=== PATIENT | male | born 1975 | race Caucasian/White ===

== ENCOUNTER 2017-08-05 14:06 | Emergency (ER) | payer MEDICAID, OTHER ==
[2017-08-05] MEDS ORDERED: BENADRYL 50 MG/ML IV ONE (16:41)
[2017-08-05] MEDS ORDERED: Sodium Chloride 0.9% 1000 ML 1,000 ML IV STA (16:41)
[2017-08-05] MEDS ORDERED: Reglan 10 MG/2 ML IV ONE (16:41)
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
[2017-08-05] MEDS ORDERED: Reglan 10 MG/2 ML ONE (16:56)
[2017-08-05] MEDS ORDERED: Sodium Chloride 0.9% 1000 ML 1,000 ML ONE (16:56)
[2017-08-05] MEDS ORDERED: BENADRYL 50 MG/ML ONE (16:56)
[2017-08-05 17:59] VITALS: BP 134/78; PULSE 78; O2SAT 98
== END 2017-08-05 17:59 | disposition home or self-care (01) ==
LOC: ED 14:06
DX: G43.909 Migraine, unspecified, not intractable, without status migrainosus (principal); Z79.899 Other long term (current) drug therapy; G80.9 Cerebral palsy, unspecified
CPT/HCPCS: 36000; 96360; 96374; 96375; 99284; J1200

== ENCOUNTER 2018-03-14 16:47 | Emergency (ER) | payer OTHER ==
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
[2018-03-14 19:21] VITALS: BP 117/77; PULSE 104; O2SAT 99
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
== END 2018-03-14 19:23 | disposition home or self-care (01) ==
LOC: ED 16:47
DX: S09.90XA Unspecified injury of head, initial encounter (principal); R51 Headache; M54.5 Low back pain; V57.6XXA Passenger in pick-up truck or van injured in collision with fixed or stationary object in traffic accident, initial encounter; Z79.899 Other long term (current) drug therapy
CPT/HCPCS: 70450; 72100; 99284

== ENCOUNTER 2018-04-18 17:01 | Emergency (ER) | payer OTHER ==
[2018-04-18] MEDS ORDERED: Zofran 4 MG/2 ML VIAL IV ONE (17:14)
[2018-04-18] MEDS ORDERED: Sodium Chloride 0.9% 1000 ML 1,000 ML IV SCH (17:15)
[2018-04-18 17:17] VITALS: O2SAT 98
[2018-04-18] MEDS ORDERED: TORAdol 30 mg Injection ONE (17:20)
[2018-04-18] MEDS ORDERED: Sodium Chloride 0.9% 1000 ML 1,000 ML ONE (17:20)
[2018-04-18] MEDS ORDERED: Zofran 4 MG/2 ML VIAL ONE (17:20)
[2018-04-18] MEDS: TORAdol 30 mg Injection IV ONE (17:21)
--- NOTE | 2018-04-18 17:39 | ERPHSYRPT ---
- History of Present Illness Time Seen by Provider: 04/18/18 17:02 Source: patient Exam Limitations: no limitations Patient Subjective Stated Complaint: pt fell off of ladder and fell about 8 feet from ladder, and landed on ground and landscape timbers, no loc, co pain to lower back.shoulders Triage Nursing Assessment: pt walked in, alert, resp easy, vomited about 500 cc , chest clear, abd soft, moves all ext, co pain to lower back has abrasions to back Physician History: patient walked in after falling 6-8' from a ladder onto the ground and across some Intellit[employer]ing logs; no head or neck injury; stunned but no lOC; no cheat or abdominal pain; some nausea and later some emesis from the pain in back and pelvis; no arm or leg pain; severe pain in lower back bilateral and both hips and sacrum; no numbness or tingling; no incontinence; no prior hx; no other complaints Method of Injury: fall Occurred: this afternoon ( one hr prior to arrival) Where Injury Occurred: home Loss of Consciousness: no loss of consciousness, dazed Pain Location: left, right, pelvis, hip(s), back (lower bilateral) Severity of Pain-Max: severe Severity of Pain-Current: severe Modifying Factors: Improves With: movement (aggravates) Associated Symptoms: back pain, nausea, vomiting, No abdominal pain, No chest pain, No neck pain, No seizures, No shortness of breath, No vision changes Allergies/Adverse Reactions: morphine Allergy (Intermediate, Verified 03/14/18 17:54) Hives Home Medications: Divalproex Sodium [Depakote] 250 mg PO TID 06/22/15 [History] Eslicarbazepine Acetate [Aptiom] 800 mg PO DAILY 12/14/15 [History] Gabapentin [Neurontin] 300 mg PO TID 08/02/16 [History] Brivaracetam [Briviact] 100 mg BID 04/18/18 [History] Hx Tetanus, Diphtheria Vaccination/Date Given: No Hx Influenza Vaccination/Date Given: No Hx Pneumococcal Vaccination/Date Given: No Immunizations Up to Date: Yes - Review of Systems Constitutional: No Symptoms Eyes: No Symptoms Ears, Nose, & Throat: No Symptoms Respiratory: No Cough, No Dyspnea, No Wheezing Cardiac: No Chest Pain, No Palpitations, No Syncope Abdominal/Gastrointestinal: Nausea, Vomiting, No Abdominal Pain, No Diarrhea, No Hematemesis, No Hematochezia Genitourinary Symptoms: No Dysuria, No Hematuria, No Incontinence, No Urinary Retention, No Testicle Pain Musculoskeletal: Back Pain, Fall, Injury, No Neck Pain Skin: No Symptoms Neurological: No Focal Weakness, No Headache, No Paralysis, No Parasthesia, No Seizure, No Sensory Changes Psychological: No Symptoms Endocrine: No Symptoms Hematologic/Lymphatic: No Symptoms Immunological/Allergic: No Symptoms - Past Medical History Pertinent Past Medical History: Yes Neurological History: Seizures, Other ENT History: No Pertinent History Cardiac History: Hypertension Respiratory History: No Pertinent History Endocrine Medical History: No Pertinent History Musculoskeletal History: Degenerative Disk Disease, Fibromyalgia, Rheumatoid Arthritis GI Medical History: GERD History: No Pertinent History Psycho-Social History: Anxiety, Depression Male Reproductive Disorders: No Pertinent History Other Medical History: 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 HYPOKALEMIA, MESENTERIC PYMPHAGITIS, DEPRESSION, MULTIPLE SCLEROSIS, GERD, CARPAL TUNNEL SYNDROME. 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 - Social History Smoking Status: Never smoker Exposure to second hand smoke: No Alcohol Use: None Drug Use: none Patient Lives Alone: No Significant Family History: no pertinent family hx Physical Exam - Nursing Vital Signs Nursing Vital Signs: Initial Vital Signs Temperature 99.4 F 04/18/18 17:09 Pulse Rate 107 H 04/18/18 17:09 Respiratory Rate 16 04/18/18 17:09 Blood Pressure 141/105 04/18/18 17:09 O2 Sat by Pulse Oximetry 98 04/18/18 17:09 Pain Scale Pain Intensity 8 - Neeraj Coma Score Best Eye Response ([place]): (4) open spontaneously Best Verbal Response (Neeraj): (5) oriented Best Motor Response ([place]): (6) obeys commands Neeraj Total: 15 - Physical Exam General Appearance: severe distress (low back and pelvis and hip pain), alert Head Injury: no evidence of injury, No Adames's Sign, No contusions, No lacerations, No raccoon eyes, No swelling, No tenderness Eye Exam: bilateral eye: normal inspection, PERRL, EOMI, other (vision ok and fundi benign) ENT Exam: airway nml, nml ext.inspection, hearing grossly normal, No hemotympanum, No clotted nasal blood, No malocclusion Neck Exam: supple, trachea midline, full range of motion, normal inspection, No muscle spasm, No paraspinous muscle tender, No pain on movement of neck, No tenderness, No JVD Respiratory/Chest Exam: normal breath sounds, No chest tenderness, No respiratory distress, No ecchymosis, No crepitus, No rales, No rhonchi, No wheezing, No subcutaneous emphysema, No rib tenderness Cardiovascular Exam: normal heart sounds, regular rate/rhythm, normal peripheral pulses, tachycardia, No murmur, No JVD Gastrointestinal Exam: soft, normal bowel sounds, No tenderness, No guarding, No pulsatile mass, No rebound, No organomegaly Genitalia Exam: normal genital exam Rectal Exam: deferred Back Exam: vertebral tenderness (midline lower lumbar), decreased range of motion, muscle spasm (lower lumbar), point tenderness (mid lwoer lumbar), No normal inspection (loss of nomral LS curvature), No CVA tenderness, No rash Extremity Exam: normal inspection, normal range of motion (but with hip and back pain with straight leg raising bilateral), capillary refill <3 sec, pelvis stable, limited range of motion (hips and L/S due to apin), pain with movement, weight bearing (walked in), tenderness (bialteral hips and over sacrum post), No calf tenderness, No lacerations, No parasthesia, No paralysis, No latonya's sign, No pedal edema Peripheral Pulses: carotid (R): 4+, carotid (L): 4+, femoral (R): 4+, femoral (L ): 4+, dorsalis-pedis (R): 3+, dorsalis-pedis (L): 3+ Neurologic Exam: alert, oriented x 3, cooperative, stay cutter II-XII nml as tested, normal mood/affect, nml cerebellar function, nml station & gait, sensation nml Skin Exam: normal color, warm, dry, No rash, No petechiae, No cyanosis SpO2 Interpretation: normal SpO2: 98 Oxygen Delivery: Room Air - Course Nursing assessment & vital signs reviewed: Yes - CT Exams Abdomen/Pelvis CT Interpretation: Negative, Tele-radiologist Report, Other (compared to prior films; small HH and renal cyst; no bony abnormalities) Ordered Tests: Active Orders 24 hr Category Date Time Status Accucheck STAT Care 04/18/18 17:14 Active Cold Application STAT Care 04/18/18 17:14 Active IV Insertion STAT Care 04/18/18 17:14 Active Re-Check Vital Signs STAT Care 04/18/18 17:14 Active ABDOMEN AND PELVIS W/0 CONTRAS [CT] Stat Exams 04/18/18 17:16 Taken BMP Stat Lab 04/18/18 17:17 Completed CBC Stat Lab 04/18/18 17:17 Completed Medication Summary Generic Name Dose Route Start Last Admin Trade Name Freq PRN Reason Stop Dose Admin Sodium Chloride 1,000 mls @ 100 mls/hr 04/18/18 17:15 04/18/18 17:22 Sodium Chloride 0.9% 1000 Ml IV 05/18/18 17:14 100 mls/hr .Q10H JOHANN Administration Discontinued Medications Generic Name Dose Route Start Last Admin Trade Name Freq PRN Reason Stop Dose Admin Ketorolac Tromethamine 30 mg 04/18/18 17:14 04/18/18 17:21 Toradol 30 Mg Injection IV 04/18/18 17:15 30 mg STAT ONE Administration Ketorolac Tromethamine Confirm 04/18/18 17:20 Toradol 30 Mg Injection Administered 04/18/18 17:21 Dose 30 mg .ROUTE .STK-MED ONE Ondansetron HCl 4 mg 04/18/18 17:14 04/18/18 17:22 Zofran 4 Mg/2 Ml Vial IV 04/18/18 17:15 4 mg STAT ONE Administration Ondansetron HCl Confirm 04/18/18 17:20 Zofran 4 Mg/2 Ml Vial Administered 04/18/18 17:21 Dose 4 mg .ROUTE .STK-MED ONE Lab/Rad Data: Laboratory Result Diagrams 04/18/18 17:17 04/18/18 17:17 Laboratory Results 04/18/18 04/18/18 Range/Units 17:17 17:17 WBC 8.9 (4.0-10.5) K/mm3 RBC 5.04 (4.1-5.6) M/mm3 Hgb 15.4 (12.5-18.0) gm/dl Hct 45.4 (42-50) % MCV 90.1 (78-100) fl MCH 30.6 (26-32) pg MCHC 33.9 (32-36) g/dl RDW 13.0 (11.5-14.0) % Plt Count 80 L (150-450) K/mm3 MPV 11.0 H (6-9.5) fl Sodium 140 (137-145) mmol/L Potassium 3.7 (3.5-5.1) mmol/L Chloride 106 (98-107) mmol/L Carbon Dioxide 22 (22-30) mmol/L Anion Gap 15.7 H (5-15) MEQ/L BUN 6 L (9-20) mg/dL Creatinine 0.76 (0.66-1.25) mg/dL Estimated GFR > 60.0 ML/MIN Glucose 118 H (74-106) mg/dL Calcium 9.2 (8.4-10.2) mg/dL reviewed - Progress Progress: improved (after meds and cT), pain not gone completely, re-examined ( after meds and ct) Progress Note: 04/18/18 17:44 IV started, meds given; labs pending; patient in xr getting CT; will recheck on return 04/18/18 17:[address]; pain improved from 04/04 to 12/03; no sensory or neuro defecits; N&V resolved; CT results and lab results pending; VS ok; will monitor and recheck 04/18/18 18:19 family at bedside; patient continues to improve and get relief; C reported as negative for acute bony injury; compared to prior films; small HH and renal cyst ; results shared with patient and family; instructions given 04/18/18 18:24 labs ok Counseled pt/family regarding: lab results, diagnosis, need for follow-up, rad results - Departure Time of Disposition: 18:24 Departure Disposition: Home Clinical Impression: Acute lower back pain from fall, acute hip pain from fall Condition: Stable Critical Care Time: No Referrals: YENI ACOSTA [Primary Care Provider] - Instructions: Contusion (DC), Preventing Falls, Low Back Pain in Adults Additional Instructions: rest; ice; Back pain instructions. Rest, ice x 24-48 hours, then warm compresses; no heavy lifting (>20#'s) x 3-5 days; call [facility] [place] or [facility] Med doctor in am for follow up appointment and or referral as needed. Return if problems. Take meds as prescribed. Follow-up with family doctor as directed. Call for appointment. Return if any problems. If you smoke please stop. Call or follow up with your family doctor for assistance if you need it to stop. Please wear your seatbelt when driving. Have a nice day. Thank you for allowing us to participate in your care today. :o) Dr Jn Cobb Prescriptions: Naproxen Sodium [Anaprox Ds] 550 mg PO Q8HPRN PRN #14 tablet PRN Reason: Pain Chlorzoxazone [Parafon Forte Dsc] 500 mg PO QID #20 tablet
[2018-04-18 18:02] LABS: Hematocrit 45.4 % (42-50); Hemoglobin 15.4 gm/dl (12.5-18.0); Mean Cell Volume 90.1 fl (78-100); Mean Corpuscular Hemoglobin 30.6 pg (26-32); Mean Corpuscular Hgb Concent. 33.9 g/dl (32-36); Platelet Count 80 K/mm3 (150-450); Red Blood Count 5.04 M/mm3 (4.1-5.6); White Blood Count 8.9 K/mm3 (4.0-10.5)
[2018-04-18 18:15] LABS: ANION GAP 15.7 MEQ/L (5-15); BLOOD UREA NITROGEN 6 mg/dL (9-20); CHLORIDE 106 mmol/L (98-107); Calcium 9.2 mg/dL (8.4-10.2); Carbon Dioxide 22 mmol/L (22-30); Creatinine 1 0.76 mg/dL (0.66-1.25); Glucose 118 mg/dL (74-106); Potassium 3.7 mmol/L (3.5-5.1); SODIUM 140 mmol/L (137-145)
[2018-04-18 18:43] VITALS: BP 120/70; PULSE 70
[2018-04-18 21:31] LABS: Slide Review YES
--- NOTE | 2018-04-19 08:38 | XRAY ---
Indication: Low back/pelvic pain following fall off ladder. Multiple contiguous axial images obtained through the abdomen and pelvis without contrast as ordered. Comparison: December 14, 2015. Lung bases essentially clear. Heart is not enlarged. Again small hiatal hernia. A few intraluminal radiopacities in the stomach and proximal small bowel loops presumed ingested medication/bismuth. Noncontrasted stomach and bowel loops appear nonobstructed. Normal appendix. Again previous cholecystectomy. No free fluid/air. Stable right renal cortical cyst. Remaining liver, pancreas, spleen, adrenal glands, kidneys, ureters, bladder, and aorta appear unremarkable for noncontrast exam. Osseous structures intact. Stable small fatty left inguinal hernia. Impression: 1. Stable small hiatal hernia, small fatty left inguinal hernia, and right renal cyst. 2. No new/acute intra-abdominal/pelvic abnormalities or fracture on this noncontrast exam. CT DI 19.50
== END 2018-04-18 18:47 | disposition home or self-care (01) ==
LOC: ED 17:01
DX: M54.5 Low back pain (principal); M25.552 Pain in left hip; M25.551 Pain in right hip; R10.2 Pelvic and perineal pain; R11.2 Nausea with vomiting, unspecified; W11.XXXA Fall on and from ladder, initial encounter; Y92.007 Garden or yard of unspecified non-institutional (private) residence as the place of occurrence of the external cause; Z79.899 Other long term (current) drug therapy
CPT/HCPCS: 36000; 36415; 74176; 80048; 82962; 85027; 96360; 96374; 96375; 99284; J1885; J2405

== ENCOUNTER 2021-05-31 04:05 | Emergency (ER) | payer OTHER ==
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
[2021-05-31 05:18] LABS: Absolute Neutrophil Ct (ANC) 9.59 (1.4-6.9); BASOPHIL % 0.2 % (0.0-0.4); Basophil (Absolute #) 0.03 (0-0.4); Eosinophil % 0.6 % (0.00-5.0); Eosinophil (Absolute #) 0.07 (0-0.5); Hematocrit 43.8 % (42-50); Hemoglobin 14.7 gm/dl (12.5-18.0); Lymphocyte (Absolute #) 1.65 (1.0-4.6); Lymphocytes % 13.4 % (24.0-44.0); Mean Corpuscular Hemoglobin 29.5 pg (26-32); Mean Corpuscular Hgb Concent. 33.6 g/dl (32-36); Mean Platelet Volume 10.3 fl (7.5-11.0); Monocyte (Absolute #) 1.01 (0.0-1.3); Monocytes % 8.2 % (0.0-12.0); Neutrophil % 77.6 % (36.0-66.0); Platelet Count 238 K/mm3 (150-450); Red Blood Count 4.98 M/mm3 (4.1-5.6); Red Cell Distribution Width 12.9 % (11.5-14.0); White Blood Count 12.4 K/mm3 (4.0-10.5)
[2021-05-31 05:27] LABS: ALBUMIN 4.3 g/dL (3.5-5.0); ALKALINE PHOSPHATASE 117 U/L (38-126); ANION GAP 12.6 MEQ/L (5-15); BLOOD UREA NITROGEN 14 mg/dL (9-20); CHLORIDE 102 mmol/L (98-107); Calcium 8.7 mg/dL (8.4-10.2); Carbon Dioxide 25 mmol/L (22-30); Creatinine 1 0.81 mg/dL (0.66-1.25); EST GLOMERULAR FILTRATION RATE > 60.0 ML/MIN; Glucose 101 mg/dL (74-106); Potassium 3.7 mmol/L (3.5-5.1); SGOT/AST 56 U/L (17-59); SGPT/ALT 31 U/L (0-50); SODIUM 135 mmol/L (137-145); Total Protein 7.4 g/dL (6.3-8.2)
[2021-05-31] MEDS ORDERED: Sodium Chloride 0.9% 1000 ML 1,000 ML IV STA (06:45)
[2021-05-31] MEDS ORDERED: Sodium Chloride 0.9% 1000 ML 1,000 ML ONE (06:46)
[2021-05-31 07:47] LABS: Appearance CLEAR (CLEAR); Bilirubin NEGATIVE (NEGATIVE); Blood NEGATIVE Ery/ul (0-5); Glucose NEGATIVE (NEGATIVE); Ketones SMALL (NEGATIVE); Leukocyte Esterase NEGATIVE (NEGATIVE); Nitrite NEGATIVE (NEGATIVE); Protein,Urine Dip NEGATIVE (Negative); Specific Gravity 1.014 (1.005-1.025); Urobilinogen NEGATIVE mg/dL (0-1)
[2021-05-31 08:02] LABS: Barbiturate,Urine NEGATIVE (NEGATIVE); Benzodiazepine,Urine NEGATIVE (NEGATIVE); Cocaine,Urine NEGATIVE (NEGATIVE); Methadone,Urine NEGATIVE (NEGATIVE); Opiate,Urine NEGATIVE (NEGATIVE); PCP,Urine NEGATIVE (NEGATIVE); THC,Urine NEGATIVE (NEGATIVE)
[2021-05-31 08:51] LABS: Amphetamine,Urine POSITIVE (NEGATIVE)
--- NOTE | 2021-05-31 09:28 | XRAY ---
Exam: CT of the head without IV contrast from 05/31/2021. CTDI: 53.92 mGy Comparison: CT of the head without IV contrast from 03/14/2018. Indication: Memory loss, confusion, headaches; patient states he had a shunt placed in his head in 2017. Technique: Non-IV contrast axial images were obtained through the brain. Reconstructed coronal and sagittal images were created and reviewed. Findings: The chief ultrasound technologist left a note that she had to stop the CT scan because the patient tried to sit up during the scan. The technologist also stated the patient was unable to hold still. There is interval placement of a right-sided shunt with the shunt tip in the projection of the body of the right lateral ventricle. Although right lateral ventricle enlargement persists, particularly within the occipital and temporal horns, there has been some improvement (i.e. decrease) as compared to the prior study from 03/14/2018. I again note mild stable shift of the upper cerebral midline from right to left. The left lateral ventricle is unremarkable. There is again noted to be a prominent left posterior fossa extra-axial space representing no significant interval change. The fourth ventricle is of normal size and is midline. No acute intracranial bleed or subdural or epidural hematoma is seen. No focal low attenuation lesion is seen to suggest an ischemic infarct within the major cerebral or cerebellar artery distribution. The remainder of the cortical sulci, sylvian fissures, and basilar cisterns appear unremarkable. The calvarium of the skull reveals no fracture or other significant focal bone lesion. There is some scant mucosal thickening within the medial and inferior right maxillary sinus. No air-fluid levels are seen. The remainder of the paranasal sinuses are well aerated. The mastoid air cells are clear without effusion. The middle ear cavities appear grossly unremarkable. Impression: 1. Interval placement of a right-sided shunt with the tip in the body of the right lateral ventricle. I again note asymmetric enlargement of the right lateral ventricle, particularly the occipital and temporal horns, although I believe there has been mild improvement (i.e. decrease in size) as compared to 03/14/2018. Mild shift of the midline at the level of the lateral ventricles from right to left is again seen representing no change from 03/14/2018. 2. I again note asymmetric prominence of the left posterior fossa extra-axial space representing no change. The fourth ventricle is of normal size and is midline. 3. No acute intracranial bleed or other acute intracranial process is seen. 4. Mild chronic right maxillary sinus disease. No air-fluid levels are seen to suggest acute sinusitis.
[2021-05-31] MEDS ORDERED: TYLENOL EXTRA STRENGTH 500 MG ONE (11:00)
[2021-05-31] MEDS ORDERED: TYLENOL EXTRA STRENGTH 500 MG PO ONE (11:04)
[2021-05-31 15:13] LABS: COVID AG -BINAX NOW RAPID TEST NEGATIVE (NEGATIVE)
[2021-05-31 18:11] VITALS: BP 104/86; PULSE 91; O2SAT 100
== END 2021-05-31 19:26 | disposition short-term general hospital (02) ==
LOC: ED 04:05 → EEVIPCON 04:05 → ED 19:26
DX: R41.82 Altered mental status, unspecified (principal); R44.1 Visual hallucinations; F15.921 Other stimulant use, unspecified with intoxication delirium; Z79.891 Long term (current) use of opiate analgesic
CPT/HCPCS: 36000; 36415; 70450; 80053; 80164; 80307; 81001; 82140; 85025; 96360; 99000; 99285; A9270-GY; G0480

== ENCOUNTER 2023-01-07 19:11 | Emergency (ER) | payer OTHER ==
--- NOTE | 2023-01-07 19:21 | ERPHSYRPT ---
- History of Present Illness Time Seen by Provider: 01/07/23 19:20 Source: patient Exam Limitations: no limitations Physician History: 47-year-old male presents to the emergency room with right-sided neck pain and swelling for the past 3 days. He does report current cough and congestion. Patient denies fever, chills, sore throat, hoarseness, chest pain, shortness of breath, dysphagia or dental pain and swelling. She denies previous history of similar symptoms. Timing/Duration: gradual onset Severity: severe ENT Location: throat Prearrival Treatment: no prearrival treatment Modifying Factors: Worsens With: nothing Associated Symptoms: cough, facial pain/swelling (right neck), nasal congestion/drainage, neck pain, swollen glands, No ear pain (R), No ear pain (L), No fever, No chills, No change in hearing, No dizziness, No drooling, No jaw pain, No sinus infection, No sore throat, No difficulty swallowing, No voice change Allergies/Adverse Reactions: morphine Allergy (Intermediate, Verified 01/07/23 19:19) Hives Home Medications: ALPRAZolam [Xanax] 0.5 mg PO BID 05/31/21 [History] Amitriptyline HCl 25 mg [Elavil 25 mg] 25 mg PO HS 05/31/21 [History] Buprenorphine HCl/Naloxone HCl [Buprenorphin-Naloxon 8-2 mg Sl] 1 each SL BID 05/31/21 [History] Divalproex Sodium ER 250 mg [Depakote EXTENDED RELEASE 250 MG] 250 mg PO BID 05/31/21 [History] Gabapentin [Neurontin 300 mg] 300 mg PO TID 05/31/21 [History] SUMAtriptan succinate [Imitrex 50 mg] 50 mg PO DAILY PRN PRN 05/31/21 [History] Tizanidine HCl 4 mg [Zanaflex 4 MG] 4 mg PO BID 05/31/21 [History] Topiramate 25 mg PO DAILY 05/31/21 [History] Venlafaxine HCl ER 75 mg [Effexor XR 75 MG] 75 mg PO DAILY 05/31/21 [History] Hx Tetanus, Diphtheria Vaccination/Date Given: No Hx Influenza Vaccination/Date Given: No Hx Pneumococcal Vaccination/Date Given: No Travel Risk - Vaccine Status Have you recieved a Covid-19 vaccination: No - Review of Systems Constitutional: No Symptoms Eyes: No Symptoms Ears, Nose, & Throat: Nose Congestion, Other (right neck swelling, pain), No Mouth Pain, No Mouth Swelling, No Throat Pain, No Throat Swelling, No Painful Swallowing Respiratory: Cough, No Dyspnea Cardiac: No Symptoms Abdominal/Gastrointestinal: No Symptoms Genitourinary Symptoms: No Symptoms Musculoskeletal: No Symptoms Skin: No Symptoms Neurological: No Symptoms Psychological: No Symptoms Endocrine: No Symptoms Hematologic/Lymphatic: No Symptoms Immunological/Allergic: No Symptoms All Other Systems: Reviewed and Negative - Past Medical History Pertinent Past Medical History: Yes Neurological History: Seizures ENT History: No Pertinent History Cardiac History: No Pertinent History Respiratory History: No Pertinent History Endocrine Medical History: No Pertinent History Musculoskeletal History: Arthritis, Fractures GI Medical History: GERD History: No Pertinent History Psycho-Social History: Anxiety, Depression Male Reproductive Disorders: No Pertinent History Other Medical History: 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 HYPOKALEMIA, MESENTERIC PYMPHAGITIS, DEPRESSION, MULTIPLE SCLEROSIS, GERD, CARPAL TUNNEL SYNDROME. 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 - Social History Smoking Status: Never smoker Exposure to second hand smoke: No Alcohol Use: None Drug Use: none Patient Lives Alone: No Significant Family History: no pertinent family hx - Physical Exam General Appearance: no apparent distress Eye Exam: bilateral eye: normal inspection, PERRL, EOMI Ear Exam: bilateral ear: auricle normal, canal normal, TM normal Nasal Exam: normal inspection, No sinus tenderness Throat Exam: pharynx normal, moist mucus membranes, No dental tenderness, No excessive drooling, No foreign body, No mandibular swelling, No maxillary swelling, No pharynx swelling, No pharynx tenderness, No tongue swollen, No tonsillar exudate, No tonsillar swelling, No uvula swelling Neck Exam: full range of motion, trachea midline, lymphadenopathy (R), tender lateral Cardiovascular/Respiratory Exam: normal breath sounds, regular rate/rhythm, no respiratory distress Neurologic Exam: alert, oriented x 3, cooperative, No aphasia Skin Exam: normal color, warm, dry, No rash SpO2 Interpretation: normal O2 Delivery: Room Air - Progress Progress: unchanged Progress Note: Patient left AMA without discussion with staff. 01/07/23 19:40 - Departure Departure Disposition: AMA Clinical Impression: Localized swelling, mass or lump of neck Condition: Stable Critical Care Time: No Referrals: YENI ACOSTA [Primary Care Provider] - Follow up/PCP as directed Instructions: Neck pain
[2023-01-07 19:28] VITALS: BP 145/99; PULSE 104; O2SAT 99
== END 2023-01-07 19:30 | disposition left against medical advice (07) ==
LOC: ED 19:11
DX: R22.1 Localized swelling, mass and lump, neck (principal); M54.2 Cervicalgia; R05.9 Cough, unspecified; R09.81 Nasal congestion; Z79.891 Long term (current) use of opiate analgesic; Z79.899 Other long term (current) drug therapy; Z28.310 Unvaccinated for COVID-19
CPT/HCPCS: 99281

== ENCOUNTER 2023-12-06 19:32 | Emergency (ER) | payer OTHER ==
--- NOTE | 2023-12-06 19:36 | ERPHSYRPT ---
- History of Present Illness Time Seen by Provider: 12/06/23 19:35 Source: patient Exam Limitations: no limitations Physician History: This is a 48-year-old white male patient of Dr. Rodriguez who was brought to the emergency department by grinding machine operator automatic service. The patient walked into [facility] and wanted to be transferred to [facility] emergency department secondary to right eyelid swelling for more than 2 months. 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 I asked him how, he has not seen any bloody prior to this visit and he said "I do not like doctors". Timing/Duration: today Location: right eye Severity: moderate Apparent Injury: possibly Associated Symptoms: pain, sensitivity to light, matting, eyelid swelling, decreased vision (Chronic), No foreign body sensation Visual Assistive Devices: None Allergies/Adverse Reactions: morphine Allergy (Intermediate, Verified 12/06/23 19:34) Hives Home Medications: ALPRAZolam [Xanax] 0.5 mg PO BID 05/31/21 [History] Amitriptyline HCl 25 mg [Elavil 25 mg] 25 mg PO HS 05/31/21 [History] Buprenorphine HCl/Naloxone HCl [Buprenorphin-Naloxon 8-2 mg Sl] 1 each SL BID 05/31/21 [History] Divalproex Sodium ER 250 mg [Depakote EXTENDED RELEASE 250 MG] 250 mg PO BID 05/31/21 [History] Gabapentin [Neurontin 300 mg] 300 mg PO TID 05/31/21 [History] SUMAtriptan succinate [Imitrex 50 mg] 50 mg PO DAILY PRN PRN 05/31/21 [History] Tizanidine HCl 4 mg [Zanaflex 4 MG] 4 mg PO BID 05/31/21 [History] Topiramate 25 mg PO DAILY 05/31/21 [History] Venlafaxine HCl ER 75 mg [Effexor XR 75 MG] 75 mg PO DAILY 05/31/21 [History] Hx Tetanus, Diphtheria Vaccination/Date Given: Yes Hx Influenza Vaccination/Date Given: No Hx Pneumococcal Vaccination/Date Given: No Travel Risk - International Travel Have you traveled outside of the country in past 3 weeks: No - Emerging Infectious Disease Are you exhibiting symptoms associated with any current EIDs: No - Review of Systems Constitutional: No Symptoms Eyes: Eye Redness, No Foreign Body Sensation Ears, Nose, & Throat: No Symptoms Respiratory: No Symptoms Cardiac: No Symptoms Abdominal/Gastrointestinal: No Symptoms Genitourinary Symptoms: No Symptoms Musculoskeletal: No Symptoms Skin: No Symptoms Neurological: No Symptoms Psychological: No Symptoms Endocrine: No Symptoms Hematologic/Lymphatic: No Symptoms Immunological/Allergic: No Symptoms All Other Systems: Reviewed and Negative - Past Medical History Pertinent Past Medical History: Yes Neurological History: Seizures ENT History: No Pertinent History Cardiac History: No Pertinent History Respiratory History: No Pertinent History Endocrine Medical History: No Pertinent History Musculoskeletal History: Arthritis, Fractures GI Medical History: GERD History: No Pertinent History Psycho-Social History: Anxiety, Depression Male Reproductive Disorders: No Pertinent History Other Medical History: 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 HYPOKALEMIA, MESENTERIC PYMPHAGITIS, DEPRESSION, MULTIPLE SCLEROSIS, GERD, CARPAL TUNNEL SYNDROME. 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 Significant Family History: no pertinent family hx - Social History Smoking Status: Never smoker Exposure to second hand smoke: No Alcohol Use: None Drug Use: none Patient Lives Alone: Yes - Nursing Vital Signs Nursing Vital Signs: Initial Vital Signs Temperature 99.2 F 12/06/23 19:34 Pulse Rate 107 H 12/06/23 19:34 Respiratory Rate 16 12/06/23 19:34 Blood Pressure 121/75 12/06/23 19:34 O2 Sat by Pulse Oximetry 97 12/06/23 19:34 Pain Scale Pain Intensity 9 - Physical Exam General Appearance: no apparent distress, alert, anxiety Intraocular Pressure (Tonopen): right Eye Exam: right eye: eyelid inflammation, bilateral eye: PERRL, EOMI Ears, Nose, Throat Exam: normal ENT inspection, moist mucous membranes Neck Exam: normal inspection, non-tender, supple, full range of motion Respiratory Exam: airway intact, No chest tenderness, No respiratory distress Cardiovascular Exam: tachycardia Gastrointestinal Exam: No tenderness Extremity Exam: normal inspection, normal range of motion, pelvis stable Neurologic: alert, oriented x 3, cooperative, wellness program coordinator II-XII nml as tested, normal mood/affect, nml cerebellar function, nml station & gait, sensation nml Skin Exam: normal color, warm, dry Lymphatic: adenopathy SpO2 Interpretation: normal O2 Delivery: Room Air - Course Nursing assessment & vital signs reviewed: Yes Ordered Tests: Medication Summary Discontinued Medications Generic Name Dose Route Start Last Admin Trade Name Ignacioq PRN Reason Stop Dose Admin Ceftriaxone Sodium 1,000 mg 12/06/23 20:12 12/06/23 20:24 Ceftriaxone Sodium 1000 Mg Inj Vial IM 12/06/23 20:13 1,000 mg STAT ONE Administration Ceftriaxone Sodium Confirm 12/06/23 20:20 Ceftriaxone Sodium 1000 Mg Inj Vial Administered 12/06/23 20:21 Dose 1,000 mg .ROUTE .STK-MED ONE Methylprednisolone Sodium 0 mg 12/06/23 20:12 12/06/23 20:25 Succinate 125 mg/ Sterile IM 12/06/23 20:13 125 mg Water 2 ml STAT ONE Administration Lidocaine HCl Confirm 12/06/23 20:21 Lidocaine Hcl 1% 20 Ml Mdv 20 Ml Ml Administered 12/06/23 20:22 Dose 3 ml .ROUTE .STK-MED ONE Methylprednisolone Sodium Succinate Confirm 12/06/23 20:20 Methylprednis Sod Succ 125 Mg/2 Ml Vial Administered 12/06/23 20:21 Dose 125 mg .ROUTE .STK-MED ONE Sterile Water Confirm 12/06/23 20:20 Water For Injection,Sterile 10 Ml Vial Administered 12/06/23 20:21 Dose 10 ml IJ .STK-MED ONE - Progress Progress: unchanged, re-examined Progress Note: 12/06/23 20:36 My medical decision making and the assignment of low complexity to this patient's medical issues based on review of the patient's past medical history, review the patient's medication list, review the patient drug allergy list, history present illness and physical findings on examination. No laboratory rad iographic studies are necessary in this patient's management. Counseled pt/family regarding: diagnosis, need for follow-up Medical Desision Making - Diagnostic Testing Diagnostic test were ordered, analyzed, and reviewed by me: No - Risk of complications The pt has a mod risk of morbidity or mortality based on: Need for prescription drug management - Departure Departure Disposition: Home Clinical Impression: Periorbital cellulitis of right eye Condition: Stable Critical Care Time: No Referrals: YENI RODRIGUEZ [Primary Care Provider] - Follow up/PCP as directed Additional Instructions: Warm compresses to the area 3 times a day. Do not use hot compresses. Take your antibiotics as prescribed. Return to emergency department tomorrow, 12/07/2023 for reassessment/reevaluation Prescriptions: Cefdinir 300 mg PO BID #14 cap Prednisone 10 mg [Deltasone 10 mg] 10 mg PO TID #12 tablet
[2023-12-06 19:46] VITALS: BP 121/75; PULSE 107; RESP 16; TEMP 99.2; O2SAT 97
[2023-12-06] MEDS ORDERED: solu-MEDROL ONE (20:20)
[2023-12-06] MEDS ORDERED: Rocephin 1000 MG INJ ONE (20:20)
[2023-12-06] MEDS ORDERED: Sterile H2O 10 ml IJ ONE (20:20)
[2023-12-06] MEDS ORDERED: XYLOCAINE 1% HCL 20 ML MDV ONE (20:21)
[2023-12-06] MEDS: Rocephin 1000 MG INJ IM ONE (20:24)
[2023-12-06] MEDS: solu-MEDROL 125 MG, Sterile H2O 10 ml 2 ML IM ONE (20:25)
== END 2023-12-06 20:47 | disposition home or self-care (01) ==
LOC: ED 19:32
DX: L03.213 Periorbital cellulitis (principal); Z79.891 Long term (current) use of opiate analgesic; Z79.899 Other long term (current) drug therapy
CPT/HCPCS: 96372; 99283; J0696; J2919

== ENCOUNTER 2023-12-08 15:30 | Emergency (ER) | payer OTHER ==
[2023-12-08 15:44] VITALS: TEMP 99.9
[2023-12-08] MEDS ORDERED: Sodium Chloride 0.9% 1000 ML 1,000 ML ONE ×3 (16:16→19:02)
[2023-12-08] MEDS: Sodium Chloride 0.9% 1000 ML 1,000 ML IV STA ×2 (16:18→17:12)
[2023-12-08 16:41] LABS: BASOPHIL % 0.5 % (0.2-1.2); Basophil (Absolute #) 0.09 x10^3/uL (0.01-0.08); Eosinophil % 0.2 % (0.8-7.0); Eosinophil (Absolute #) 0.04 x10^3/uL (0.04-0.54); Hematocrit 39.1 % (40.1-51.0); Hemoglobin 12.5 g/dL (13.7-17.5); IMMATURE GRAN # 0.13 x10^3u/L (0.001-0.031); IMMATURE GRAN % 0.7 % (0.001-0.429); Lymphocyte (Absolute #) 2.33 x10^3/uL (1.32-3.57); Lymphocytes % 12.1 % (21.8-53.1); Mean Cell Volume 87.9 fL (79.0-92.2); Mean Corpuscular Hemoglobin 28.1 pg (25.7-32.2); Mean Platelet Volume 9.5 fL (9.4-12.4); Monocyte (Absolute #) 1.93 x10^3/uL (0.30-0.82); Neutrophil % 76.5 % (34.0-67.9); Platelet Count 338 x10^3/uL (163-337); Red Blood Count 4.45 x10^6/uL (4.63-6.08); Red Cell Distribution Width 13.3 % (11.6-14.4); White Blood Count 19.3 x10^3/uL (4.23-9.07)
[2023-12-08 16:45] LABS: Appearance Clear (Clear); Bacteria None Seen /HPF (None Seen); Bilirubin Negative (Negative); Blood Negative (Negative); Epithelial Cells None Seen /HPF (None Seen); Glucose, Urine Negative (Negative); Hyaline Casts NONE SEEN /LPF (0-2); Ketones Negative (Negative); Leukocyte Esterase Negative (Negative); Nitrite Negative (Negative); Ph 6.5 (4.6-8.0); Protein,Urine Dip Negative (Negative); RBC 0-2 /HPF (0-5); Urobilinogen 0.2 mg/dL (0.2); WBC 0-2 /HPF (0-5)
[2023-12-08 16:46] LABS: ADD URINE CULTURE? ORDERED SEPARATELY (NO)
[2023-12-08 17:00] LABS: ACETAMINOPHEN < 10 ug/ml (10-30); ALBUMIN 3.1 g/dL (3.5-5.0); ALKALINE PHOSPHATASE 86 U/L (38-126); ANION GAP 7.6 MEQ/L (5-15); BLOOD UREA NITROGEN 7 mg/dL (9-20); CHLORIDE 98 mmol/L (98-107); Calcium 8.8 mg/dL (8.4-10.2); Carbon Dioxide 34 mmol/L (22-30); Creatinine 1 0.69 mg/dL (0.66-1.25); EST GLOMERULAR FILTRATION RATE 114.9 ML/MIN; ETHYL ALCOHOL < 10 mg/dL (0-10); Glucose 124 mg/dL (74-106); Potassium 3.3 mmol/L (3.5-5.1); SALICYLATE < 1.0 mg/dL (2-20); SGOT/AST 23 U/L (17-59); SGPT/ALT 15 U/L (0-50); SODIUM 137 mmol/L (135-145); Total Protein 6.5 g/dL (6.3-8.2)
[2023-12-08 17:07] LABS: Barbiturate,Urine NEGATIVE (NEGATIVE); Benzodiazepine,Urine POSITIVE (NEGATIVE); Cocaine,Urine NEGATIVE (NEGATIVE); Methadone,Urine NEGATIVE (NEGATIVE); Opiate,Urine NEGATIVE (NEGATIVE); PCP,Urine NEGATIVE (NEGATIVE); THC,Urine NEGATIVE (NEGATIVE)
[2023-12-08] MEDS ORDERED: Ativan 2 MG/1 ML VIAL ONE (17:09)
[2023-12-08] MEDS ORDERED: BENADRYL 50 MG/ML ONE (17:09)
[2023-12-08] MEDS: Ativan 2 MG/1 ML VIAL IM ONE (17:12)
[2023-12-08] MEDS: BENADRYL 50 MG/ML IM ONE (17:12)
--- NOTE | 2023-12-08 17:25 | ERPHSYRPT ---
- History of Present Illness Time Seen by Provider: 12/08/23 15:35 Source: patient Exam Limitations: no limitations Patient Subjective Stated Complaint: Decreased LOC. EMS reports patient was found naked in an alley prior to their arrival on scene to bring patient to the ER. Triage Nursing Assessment: Patient arrived by ambulance. He does not have on a shirt, socks, or shoes but is wearing shorts. No SOB noted. He is warm to touch. Patient is alert to name. Currently only answering yes/no questions and isn't able or willing to give nursing staff much more information than that. Patient did state at one point during his assessment that he is in [place]; disoriented to place at this time. Right eye is swollen and there is a skin tone swollen area to the right side of his head. Drool/saliva noted to chin and chest. Physician History: Patient is here with altered mental status. He was found naked in an alley [address] in [place]. Recently seen in this emergency department 2 days ago. At that point in time he also had some behavioral, possible drug issues. Today patient is minimally responsive. Intermittently wakes up and answers questions somewhat responsively. Then immediately goes back to bed. Concern for some type of drug ingestion or other intoxication. Possible head injury as well. He is not able to answer questions, is not making any sense. Allergies/Adverse Reactions: morphine Allergy (Intermediate, Verified 12/08/23 15:34) Hives Home Medications: Unobtainable 12/08/23 [History] Hx Tetanus, Diphtheria Vaccination/Date Given: Yes Hx Influenza Vaccination/Date Given: No Hx Pneumococcal Vaccination/Date Given: No Travel Risk - International Travel Have you traveled outside of the country in past 3 weeks: No - Emerging Infectious Disease Are you exhibiting symptoms associated with any current EIDs: No - Review of Systems All Other Systems: Unable due to condition - Past Medical History Pertinent Past Medical History: Yes Neurological History: Seizures ENT History: No Pertinent History Cardiac History: No Pertinent History Respiratory History: No Pertinent History Endocrine Medical History: No Pertinent History Musculoskeletal History: Arthritis, Fractures GI Medical History: GERD History: No Pertinent History Psycho-Social History: Anxiety, Depression Male Reproductive Disorders: No Pertinent History Other Medical History: 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 HYPOKALEMIA, MESENTERIC PYMPHAGITIS, DEPRESSION, MULTIPLE SCLEROSIS, GERD, CARPAL TUNNEL SYNDROME. 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 Patient medical history taken from previous ER records due to patient's current inability to answer questions/give an accurate history. - Past Surgical History Past Surgical History: Yes Neuro Surgical History: No Pertinent History Cardiac: No Pertinent History Respiratory: No Pertinent History Gastrointestinal: Cholecystectomy Genitourinary: No Pertinent History Musculoskeletal: Orthopedic Surgery Male Surgical History: No Pertinent History Other Surgical History: surg for cerabal palsy on left side. Patient surgical history taken from previous ER records due to patient's current inability to answer questions/give an accurate history. Significant Family History: no pertinent family hx - Social History Smoking Status: Unknown if ever smoked Exposure to second hand smoke: No Alcohol Use: None Drug Use: none Patient Lives Alone: Yes - Social Determinants of Health Will the patient participate in the screening: Declined to provide - Nursing Vital Signs Nursing Vital Signs: Initial Vital Signs Temperature 99.9 F 12/08/23 15:32 Pulse Rate 93 H 12/08/23 15:32 Respiratory Rate 26 H 12/08/23 15:32 Blood Pressure 126/84 12/08/23 15:32 O2 Sat by Pulse Oximetry 99 12/08/23 15:32 Pain Scale Pain Intensity 0 - Physical Exam SpO2 Interpretation: normal SpO2: 99 Comments: 12/08/23 17:22 Physical Exam Vitals signs and nursing note reviewed. Constitutional: Appearance: Patient is well-developed. HENT: Head: Normocephalic and contusion on top of head Eyes: Conjunctiva/sclera: Conjunctivae normal. Right eyelid, generalized right eye swelling periorbitally. Appears to be similar to last ER visit Neck: Musculoskeletal: Normal range of motion. Trachea: No tracheal deviation. Cardiovascular: Rate and Rhythm: Normal rate. Pulmonary: Effort: Pulmonary effort is normal. No respiratory distress. Abdominal: Palpations: Abdomen is soft. Musculoskeletal: General: No deformity. Skin: General: Skin is warm and dry. Neurological/ Psychiatric: Mental Status: Moving all 4 extremities appropriately. Withdraws to pain. Intermittently wakes up and asks questions. However does not answer any questions. GCS 11. 3 eye responds to verbal command, verbal response inappropriate words 3, localizes pain 5. 12/08/23 18:38 - Course Nursing assessment & vital signs reviewed: Yes Ordered Tests: Active Orders 24 hr Category Date Time Status Silviculture Forester STAT Care 12/08/23 16:08 Active Clean Catch Urine Specimen STAT Care 12/08/23 16:07 Active EKG-ER Only STAT Care 12/08/23 16:07 Active IV Insertion STAT Care 12/08/23 16:07 Active CHEST 1 VIEW (PORTABLE) Stat Exams 12/08/23 16:09 Completed HEAD WITHOUT CONTRAST [CT] Stat Exams 12/08/23 16:08 Completed ACETAMINOPHEN Stat Lab 12/08/23 15:35 Completed BLOOD CULTURE Stat Lab 12/08/23 16:07 Received CBC W DIFF Stat Lab 12/08/23 15:35 Completed CMP Stat Lab 12/08/23 15:35 Completed CULTURE,URINE Stat Lab 12/08/23 16:15 Received ETHYL ALCOHOL Stat Lab 12/08/23 15:35 Completed POCT GLUCOSE Stat Lab 12/08/23 15:39 Completed SALICYLATE Stat Lab 12/08/23 15:35 Completed UA W/RFX UR CULTURE Stat Lab 12/08/23 16:15 Completed Urine Triage Profile Stat Lab 12/08/23 16:15 Completed Medication Summary Generic Name Dose Route Start Last Admin Trade Name Freq PRN Reason Stop Dose Admin Levetiracetam 1,000 mg/ 110 mls @ 220 mls/hr 12/08/23 18:18 12/08/23 18:34 Dextrose IV 12/08/23 18:47 220 mls/hr STAT ONE Administration Discontinued Medications Generic Name Dose Route Start Last Admin Trade Name Freq PRN Reason Stop Dose Admin Dexamethasone Sodium Phosphate 8 mg 12/08/23 17:31 12/08/23 17:34 Dexamethasone Sod Phosphate 10 Mg/Ml IV 12/08/23 17:32 8 mg STAT ONE Administration Dexamethasone Sodium Phosphate Confirm 12/08/23 17:33 Dexamethasone Sod Phosphate 10 Mg/Ml Administered 12/08/23 17:34 Dose 10 mg .ROUTE .STK-MED ONE Diphenhydramine HCl 25 mg 12/08/23 16:53 12/08/23 17:12 Diphenhydramine Hcl 50 Mg/Ml Vial IM 12/08/23 16:54 25 mg STAT ONE Administration Diphenhydramine HCl Confirm 12/08/23 17:09 Diphenhydramine Hcl 50 Mg/Ml Vial Administered 12/08/23 17:10 Dose 50 mg .ROUTE .STK-MED ONE Sodium Chloride 1,000 mls @ 999 mls/hr 12/08/23 16:07 12/08/23 16:30 Sodium Chloride 0.9% 1000 Ml IV 12/08/23 17:07 0 mls/hr .Q1H1M STA Infusion Sodium Chloride Confirm 12/08/23 16:16 Sodium Chloride 0.9% 1000 Ml Administered 12/08/23 16:17 Dose 1,000 mls @ ud .ROUTE .STK-MED ONE Sodium Chloride 1,000 mls @ 999 mls/hr 12/08/23 17:07 12/08/23 18:20 Sodium Chloride 0.9% 1000 Ml IV 12/08/23 18:07 Infused .Q1H1M STA Infusion Sodium Chloride Confirm 12/08/23 17:09 Sodium Chloride 0.9% 1000 Ml Administered 12/08/23 17:10 Dose 1,000 mls @ ud .ROUTE .STK-MED ONE Dextrose Confirm 12/08/23 18:33 D5w 100ml Mini Bag 100 Ml Administered 12/08/23 18:34 Dose 200 mls @ ud IV .STK-MED ONE Levetiracetam Confirm 12/08/23 18:33 Levetiracetam 500 Mg/5 Ml Vial Administered 12/08/23 18:34 Dose 1,000 mg .ROUTE .STK-MED ONE Lorazepam 2 mg 12/08/23 16:53 12/08/23 17:12 Lorazepam 2 Mg/1 Ml 2 Mg Vial IM 12/08/23 16:54 2 mg STAT ONE Administration Lorazepam Confirm 12/08/23 17:09 Lorazepam 2 Mg/1 Ml 2 Mg Vial Administered 12/08/23 17:10 Dose 2 mg .ROUTE .STK-MED ONE Ondansetron HCl 8 mg 12/08/23 17:46 12/08/23 17:47 Ondansetron Hcl 4 Mg/2 Ml Vial IV 12/08/23 17:47 8 mg STAT ONE Administration Ondansetron HCl Confirm 12/08/23 17:47 Ondansetron Hcl 4 Mg/2 Ml Vial Administered 12/08/23 17:48 Dose 8 mg .ROUTE .STK-[facility] ONE Lab/Rad Data: Laboratory Result Diagrams 12/08/23 15:35 12/08/23 15:35 Laboratory Results 12/08/23 12/08/23 12/08/23 Range/Units 16:15 16:15 15:39 WBC (4.23-9.07) x10^3/uL RBC (4.63-6.08) x10^6/uL Hgb (13.7-17.5) g/dL Hct (40.1-51.0) % MCV (79.0-92.2) fL MCH (25.7-32.2) pg MCHC (32.3-36.5) g/dL RDW (11.6-14.4) % Plt Count (163-337) x10^3/uL MPV (9.4-12.4) fL Gran % (34.0-67.9) % Immature Gran % (Auto) (0.001-0.429) % Nucleat RBC Rel Count (0.00-0.2) % Eos # (Auto) (0.04-0.54) x10^3/uL Immature Gran # (Auto) (0.001-0.031) x10^3u/L Absolute Lymphs (auto) (1.32-3.57) x10^3/uL Absolute Monos (auto) (0.30-0.82) x10^3/uL Absolute Nucleated RBC (0.00-0.012) x10^3u/L Lymphocytes % (21.8-53.1) % Monocytes % (5.3-12.2) % Eosinophils % (0.8-7.0) % Basophils % (0.2-1.2) % Absolute Granulocytes (1.78-5.38) x10^3/uL Basophils # (0.01-0.08) x10^3/uL Sodium (135-145) mmol/L Potassium (3.5-5.1) mmol/L Chloride (98-107) mmol/L Carbon Dioxide (22-30) mmol/L Anion Gap (5-15) MEQ/L BUN (9-20) mg/dL Creatinine (0.66-1.25) mg/dL Estimated GFR ML/MIN Glucose (74-106) mg/dL POC Glucometer 134 H (74 to 106) mg/dL Calcium (8.4-10.2) mg/dL Total Bilirubin (0.2-1.3) mg/dL AST (17-59) U/L ALT (0-50) U/L Alkaline Phosphatase (38-126) U/L Serum Total Protein (6.3-8.2) g/dL Albumin (3.5-5.0) g/dL Urine Color Yellow (Yellow) Urine Appearance Clear (Clear) Urine pH 6.5 (4.6-8.0) Ur Specific Emmet 1.010 (1.005-1.030) Urine Protein Negative (Negative) Urine Glucose (UA) Negative (Negative) mg/dL Urine Ketones Negative (Negative) Urine Blood Negative (Negative) Urine Nitrite Negative (Negative) Urine Bilirubin Negative (Negative) Urine Urobilinogen 0.2 (0.2) mg/dL Ur Leukocyte Esterase Negative (Negative) U Hyaline Cast (Auto) NONE SEEN (0-2) /LPF Urine Microscopic RBC 0-2 (0-5) /HPF Urine Microscopic WBC 0-2 (0-5) /HPF Ur Epithelial Cells None Seen (None Seen) /HPF Urine Bacteria None Seen (None Seen) /HPF Urine Culture Reflexed ORDERED SEPARATELY (NO) Salicylates (2-20) mg/dL Urine Opiates Level NEGATIVE (NEGATIVE) Ur Methadone NEGATIVE (NEGATIVE) Acetaminophen (10-30) ug/ml Urine Barbiturates NEGATIVE (NEGATIVE) Ur Phencyclidine (PCP) NEGATIVE (NEGATIVE) U Benzodiazepine Level POSITIVE A (NEGATIVE) Urine Cocaine NEGATIVE (NEGATIVE) Urine Marijuana (THC) NEGATIVE (NEGATIVE) Ethyl Alcohol (0-10) mg/dL Slides for Path Review 12/08/23 12/08/23 Range/Units 15:35 15:35 WBC 19.3 H (4.23-9.07) x10^3/uL RBC 4.45 L (4.63-6.08) x10^6/uL Hgb 12.5 L (13.7-17.5) g/dL Hct 39.1 L (40.1-51.0) % MCV 87.9 (79.0-92.2) fL MCH 28.1 (25.7-32.2) pg MCHC 32.0 L (32.3-36.5) g/dL RDW 13.3 (11.6-14.4) % Plt Count 338 H (163-337) x10^3/uL MPV 9.5 (9.4-12.4) fL Gran % 76.5 H (34.0-67.9) % Immature Gran % (Auto) 0.7 H (0.001-0.429) % Nucleat RBC Rel Count 0.0 (0.00-0.2) % Eos # (Auto) 0.04 (0.04-0.54) x10^3/uL Immature Gran # (Auto) 0.13 H (0.001-0.031) x10^3u/L Absolute Lymphs (auto) 2.33 (1.32-3.57) x10^3/uL Absolute Monos (auto) 1.93 H (0.30-0.82) x10^3/uL Absolute Nucleated RBC 0.00 (0.00-0.012) x10^3u/L Lymphocytes % 12.1 L (21.8-53.1) % Monocytes % 10.0 (5.3-12.2) % Eosinophils % 0.2 L (0.8-7.0) % Basophils % 0.5 (0.2-1.2) % Absolute Granulocytes 14.80 H (1.78-5.38) x10^3/uL Basophils # 0.09 H (0.01-0.08) x10^3/uL Sodium 137 (135-145) mmol/L Potassium 3.3 L (3.5-5.1) mmol/L Chloride 98 (98-107) mmol/L Carbon Dioxide 34 H (22-30) mmol/L Anion Gap 7.6 (5-15) MEQ/L BUN 7 L (9-20) mg/dL Creatinine 0.69 (0.66-1.25) mg/dL Estimated GFR 114.9 ML/MIN Glucose 124 H (74-106) mg/dL POC Glucometer (74 to 106) mg/dL Calcium 8.8 (8.4-10.2) mg/dL Total Bilirubin 0.20 (0.2-1.3) mg/dL AST 23 (17-59) U/L ALT 15 (0-50) U/L Alkaline Phosphatase 86 (38-126) U/L Serum Total Protein 6.5 (6.3-8.2) g/dL Albumin 3.1 L (3.5-5.0) g/dL Urine Color (Yellow) Urine Appearance (Clear) Urine pH (4.6-8.0) Ur Specific Emmet (1.005-1.030) Urine Protein (Negative) Urine Glucose (UA) (Negative) mg/dL Urine Ketones (Negative) Urine Blood (Negative) Urine Nitrite (Negative) Urine Bilirubin (Negative) Urine Urobilinogen (0.2) mg/dL Ur Leukocyte Esterase (Negative) U Hyaline Cast (Auto) (0-2) /LPF Urine Microscopic RBC (0-5) /HPF Urine Microscopic WBC (0-5) /HPF Ur Epithelial Cells (None Seen) /HPF Urine Bacteria (None Seen) /HPF Urine Culture Reflexed (NO) Salicylates < 1.0 L (2-20) mg/dL Urine Opiates Level (NEGATIVE) Ur Methadone (NEGATIVE) Acetaminophen < 10 L (10-30) ug/ml Urine Barbiturates (NEGATIVE) Ur Phencyclidine (PCP) (NEGATIVE) U Benzodiazepine Level (NEGATIVE) Urine Cocaine (NEGATIVE) Urine Marijuana (THC) (NEGATIVE) Ethyl Alcohol < 10 (0-10) mg/dL Slides for Path Review YES - Progress Progress: improved Progress Note: 12/08/23 17:24 Differential diagnosis includes head bleed, skull fracture, drug ingestion, cardiac emergency, electrolyte emergency Plan for large workup including IV access, fluids, head CT, chest x-ray, Benadryl, Ativan. 12/08/23 18:39 CT scan:Impression: 1. New large soft tissue mass centered in the deep right air antisubmarine officer space extending into the paranasal sinuses, right retro-orbital space, and right middle fossa of cranium worrisome for malignancy. Marked right temporal and right parietal lobe vasogenic edema due to the tumor with mass effect/midline shifting and probable tissue necrosis detailed above. Secondary findings include osseous destructive process paranasal sinuses and right temporal bone. Also right orbit proptosis. 2. New finding high right parietal subacute to chronic appearing subdural hematoma with measurements above. 3. Chronic right lateral ventriculomegaly appears smaller again with right ventricle shunt catheter in situ. CT scan as above patient has most likely new tumor causing his altered mental status with vasogenic edema. Will start patient on steroids and Keppra seizure medication in case he had a seizure. Discussed over the phone with on-call neurosurgery, Dr. Traylor of [place]. Images were uploaded to the enrich-in cloud. She can review these. She did accept patient to [facility] emergency department. Plan for transfer to department via helicopter. Patient has a high probability giving worsening vasogenic edema to need some type of emergent airway intervention. Currently maintaining his airway, repeat GCS remains at 11. No further interventions prior to [facility] arriving. We did attempt to call patient's son or other relative. All listed numbers were disconnected. I did call patient's PCP as well, Dr. Castañeda. He stated that he had not seen the patient for a while and was unsure of any previous history of any related issues. ED critical care statement As staff physician, I have provided critical care. Time: 55 Criteria for critical illness: New onset brain tumor, lesion with vasogenic edema causing altered mental status requiring close airway support and monitor ing Treatment and management provided include: Coordination of management with ETC care team, consultants, and inpatient care team. [id number] assessment of condition and response to therapy. Review and interpretation of emergent diagnostic testing. Medical chart review and completion. Direction and immediate supervision of the following therapy: Critical care was time spent personally by me on the following activities: blood draw for specimens, development of treatment plan with patient or surrogate, discussions with consultants, discussions with primary provider, interpretation of cardiac output measurements, evaluation of patient's response to treatment, examination of patient, obtaining history from patient or surrogate, ordering and performing treatments and interventions, ordering and review of laboratory studies, ordering and review of radiographic studies, pulse oximetry, re-evaluation of patient's condition and review of old charts. This time was independent of all procedures performed. Robert Reynoso 12/08/23 18:41 Counseled pt/family regarding: lab results, diagnosis, need for follow-up, rad results Medical Desision Making - Independent Historian Additional History obtained from: Test Tech/EMT - Discussion of managment Care discussed with:: specialist Reviewed:: Test results, Need for additional workup Agreed on:: decision to admit Will see patient: in hospital - Social Determinants of Health Pt's dx & treatment plan are significantly limited by SDOH: Unemployed Limited access to: transportation, medical care - Diagnostic Testing Diagnostic test were ordered, analyzed, and reviewed by me: Yes Radiological Interpretation: Interpreted by me - Risk of complications The pt has a high risk of morbidity or mortality based on: Drug therapy requiring intensive monitoring for toxicity - Departure Departure Disposition: Transfer Clinical Impression: Midline shift of brain, Vasogenic brain edema, Brain tumor, Altered mental status Condition: Stable Critical Care Time: No Critical Care Time(excluding separately billable procedures): Critical 30-74 mins Referrals: YENI ACOSTA [Primary Care Provider] - Follow up/PCP as directed
[2023-12-08] MEDS ORDERED: DECADRON 10MG INJ. ONE (17:33)
[2023-12-08] MEDS: DECADRON 10MG INJ. IV ONE (17:34)
--- NOTE | 2023-12-08 17:36 | XRAY ---
Indication: Altered mental status. Multiple contiguous axial images obtained through the head without contrast. Comparison: May 31, 2021 New large soft tissue mass centered in the deep right molecular biology professor space measuring at least 6.6 x 6.5 x 6.0 cm. Mass extends and encroaches into the right maxillary/both ethmoid/both sphenoid sinuses. Further extension right retro-orbital space with subsequent right orbit proptosis. Extensive osseous destructive process involving the above mentioned paranasal sinuses and right temporal bone. There is also complete opacification right middle ear and right mastoid air cells presumed tumor extension. I believe mass also extends into the cranium, specifically floor right middle fossa with now marked right temporal and right parietal vasogenic edema with subsequent 8mm midline shifting. Right temporal lobe vasogenic edema demonstrates a central cystic mass measuring 2.8 x 2.0 cm, probable tissue necrosis. New finding subacute to chronic appearing right parietal subdural hematoma near the vertex measuring at least 9.5 x 2.2 x 6.0 cm. Stable right ventricular shunt catheter with tip terminating again body of right lateral ventricle. The degree of chronic right lateral ventriclomegaly appears smaller presumed as a results from the above mentioned pathology. Fourth ventricle remains midline. Stable prominent left posterior fossa extra-axial space. Impression: 1. New large soft tissue mass centered in the deep right molecular biology professor space extending into the paranasal sinuses, right retro-orbital space, and right middle fossa of cranium worrisome for malignancy. Marked right temporal and right parietal lobe vasogenic edema due to the tumor with mass effect/midline shifting and probable tissue necrosis detailed above. Secondary findings include osseous destructive process paranasal sinuses and right temporal bone. Also right orbit proptosis. 2. New finding high right parietal subacute to chronic appearing subdural hematoma with measurements above. 3. Chronic right lateral ventriculomegaly appears smaller again with right ventricle shunt catheter in situ. Comment: Telephone report was given to ordering clinician, Dr. Reynoso at 1730 hrs. on December 08, 2023.
--- NOTE | 2023-12-08 17:38 | XRAY ---
Indication: Altered mental status. Comparison: March 25, 2021 Portable chest remains inflated and clear. Heart not enlarged. Bony thorax intact again with right ventriculoperitoneal shunt catheter. No new/acute findings.
[2023-12-08 17:43] LABS: Slide Review 1 YES
[2023-12-08] MEDS ORDERED: Zofran 4 MG/2 ML VIAL ONE (17:47)
[2023-12-08] MEDS: Zofran 4 MG/2 ML VIAL IV ONE (17:47)
[2023-12-08] MEDS ORDERED: D5w 100ML Mini Bag 100 ML 200 ML IV ONE (18:33)
[2023-12-08] MEDS ORDERED: Keppra 500 MG/5 ML ONE (18:33)
[2023-12-08] MEDS: Keppra 500 MG/5 ML*** 1,000 MG in D5w 100ML Mini Bag 100 ML 100 ML IV ONE (18:34)
[2023-12-08 18:43] VITALS: O2SAT 99
[2023-12-08 19:05] VITALS: BP 133/101; PULSE 100; RESP 24
[2023-12-08] MEDS: Sodium Chloride 0.9% 1000 ML 1,000 ML IV SCH (19:07)
== END 2023-12-08 19:10 | disposition short-term general hospital (02) ==
LOC: ED 15:30
DX: G93.6 Cerebral edema (principal); D49.6 Neoplasm of unspecified behavior of brain; R41.82 Altered mental status, unspecified; Z56.0 Unemployment, unspecified; Z59.82 Transportation insecurity; Z75.3 Unavailability and inaccessibility of health-care facilities
CPT/HCPCS: 36000; 36415; 70450; 71045; 80053; 80143; 80179; 80307; 81001; 82077; 82947; 85025; 87040; 87086; 93005; 93041; 96374; 96375; 99285; 99291; J1100; J1200; J1953; J2060; J2405